=== PATIENT | female | born 1995 | race Caucasian/White ===

== ENCOUNTER 2018-08-20 22:35 | Emergency (ER) | payer SELFPAY ==
[2018-08-20 22:39] VITALS: BP 108/80
--- NOTE | 2018-08-20 22:39 | ER Report ---
History and Physical Time Seen By MD: 22:38 HPI/ROS CHIEF COMPLAINT: Painful lump behind left ear HISTORY OF PRESENT ILLNESS: 23-year-old female presents ambulatory to the ER complaining of painful lump behind her left ear for 1 week. His started draining purulent fluid over the last 24 hours. She states the pain is spread a nterior to her ear. And down into her neck. Patient states that she was killing spiders one week ago and thinks she may been bitten by a spider. Patient notes no fever or chills. She denies headache or photophobia. REVIEW OF SYSTEMS: Respiratory: No cough, no dyspnea. Cardiovascular: No chest pain, no palpitations. Gastrointestinal: No vomiting, no abdominal pain. Musculoskeletal: No back pain. Allergies: Coded Allergies: No Known Drug Allergies (Unverified , 08/20/18) Home Meds Active Scripts Cephalexin Monohydrate (CEPHALEXIN) 500 Mg Cap, 500 MG PO TID for infection, #20 CAP TAKE 1 CAPSULE BY MOUTH EVERY SIX HOURS Prov:ANDI BAEZ DO 08/20/18 Sulfamethoxazole/Trimet 800-160 Mg Tab (BACTRIM DS TABLET) 1 Each Tablet, 1 TAB PO Q12H for infection, #14 Prov:ANDI BAEZ DO 08/20/18 Reviewed Nurses Notes: Yes Old Medical Records Reviewed: Yes Constitutional Vital Sign - Last 24 Hours 08/20/18 22:39 Temp 98.0 Pulse 112 Resp 14 B/P (MAP) 108/80 Pulse Ox 92 O2 Delivery Room Air Physical Exam Vital signs stable, afebrile, pulse ox normal General Appearance: The patient is alert, has no immediate need for airway protection and no current signs of toxicity. Mild to moderate distress HEENT: Pupils equal and round no injection. TMs normal, posterior to the left ear over the mastoid area is a 2 cm x 3 cm erythematous area that is indurated but not fluctuant. There numerous open draining pustules Respiratory: Chest is non tender, lungs are clear to auscultation. Cardiac: regular rate and rhythm Gastrointestinal: Abdomen is soft and non tender, no masses, bowel sounds normal. Musculoskeletal: Neck: Neck is supple and non tender. There is swollen, tender lymphadenopathy in the left anterior cervical chain Extremities have full range of motion and are non tender. Skin: As above DIFFERENTIAL DIAGNOSIS: After history and physical exam differential diagnosis was considered for cellulitis, abscess, shingles, mastoiditis Medical Decision Making ED Course/Re-evaluation ED Course Patient was minute to an examination room. H&P was done. The differential diagnosis was considered. Patient with a area of cellulitis over the left mastoid area. It appears to have bacterial infection. There is purulent drainage coming out. There is no fluctuance to suggest at needed incision and drainage. Patient be treated with Keflex and Bactrim DS. Patient's advised ibuprofen 600 alternating with ibuprofen 650 mg for pain relief. She is advised to keep warm compresses over the affected area. Decision to Disposition Date: August 20, 2018 Decision to Disposition Time: 22:50 Depart Departure Latest Vital Signs Vital Signs Date Time Temp Pulse Resp B/P (MAP) Pulse Ox O2 Delivery O2 Flow Rate FiO2 08/20/18 22:39 98.0 112 14 108/80 92 Room Air Impression: Primary Impression: Cellulitis of scalp Condition: Improved Disposition: HOME OR SELF-CARE Referrals: CARLOS AUGUSTE MD, FARRUKH MD New Scripts Cephalexin Monohydrate (CEPHALEXIN) 500 Mg Cap 500 MG PO TID for infection, #20 CAP TAKE 1 CAPSULE BY MOUTH EVERY SIX HOURS Prov: ANDI BAEZ DO 08/20/18 Sulfamethoxazole/Trimet 800-160 Mg Tab (BACTRIM DS TABLET) 1 Each Tablet 1 TAB PO Q12H for infection, #14 Prov: ANDI BAEZ DO 08/20/18 Patient Instructions: Cellulitis (ED) Additional Instructions: Alternate ibuprofen 600 mg and Tylenol 650 mg Apply warm compresses or heating pad to the affected area as much as possible Follow-up with primary care or urgent care if unimproved in 3-5 days. ANDI BAEZ DO August 20, 2018 22:39
[2018-08-20] MEDS ORDERED: CEPHALEXIN MONO 500 MG CAP PO ONE (22:50)
[2018-08-20] MEDS ORDERED: TRIMETH/SULFA DS 160-800MG TAB PO ONE (22:50)
[2018-08-20] MEDS ORDERED: CEPH500C24 PO (22:52)
[2018-08-20] MEDS ORDERED: SULF-198 PO (22:52)
== END 2018-08-20 22:55 | disposition home or self-care (01) ==
LOC: ER 22:41
DX: L03.811 Cellulitis of head [any part, except face] (principal)
CPT/HCPCS: 99283

== ENCOUNTER 2018-11-09 14:35 | Emergency (ER) | payer SELFPAY ==
[~2018-11-09 14:35] MED LIST: CEPH500C24 PO; SULF-198 PO
--- NOTE | 2018-11-09 14:47 | ER Report ---
History and Physical Time Seen By MD: 14:43 HPI/ROS CHIEF COMPLAINT: Right gluteal abscess HISTORY OF PRESENT ILLNESS: Patient is a 32-year-old female here with complaints of several day history of a right gluteal abscess, redness, pain. Patient reportedly started taking Cipro which was left over at home without resolution. Reportedly, the size of the rash and swelling had halted but not improved since taking antimicrobial therapy. She did report having mild purulent green drainage from the site today. Patient is afebrile, hemodynamically stable. She does report chills without fever. REVIEW OF SYSTEMS: Constitutional: No fever, + chills. Musculoskeletal: Right gluteal tenderness on palpation Skin: Erythema, fluctuance of the right gluteal area consistent with abscess with a central scab Neurological: No focal neurological deficit Allergies: Coded Allergies: No Known Drug Allergies (Unverified , 11/09/18) Home Meds Active Scripts Tramadol Hcl (TRAMADOL HCL) 50 Mg Tablet, 50 MG PO Q6H PRN for PAIN, #12 TAB 0 Refills Prov:RAFFI MOSES DO 11/09/18 Clindamycin Hcl (CLINDAMYCIN HCL) 300 Mg Capsule, 300 MG PO TID for 7 Days, #21 CAPSULE Prov:RAFFI MOSES DO 11/09/18 Cephalexin Monohydrate (CEPHALEXIN) 500 Mg Cap, 500 MG PO TID for infection, #20 CAP TAKE 1 CAPSULE BY MOUTH EVERY SIX HOURS Prov:ANDI BAEZ DO 08/20/18 Sulfamethoxazole/Trimet 800-160 Mg Tab (BACTRIM DS TABLET) 1 Each Tablet, 1 TAB PO Q12H for infection, #14 Prov:ANDI BAEZ DO 08/20/18 Hx Substance Use Disorder: Yes (meth occationally) Hx Alcohol Use: Yes (occationally) Constitutional Vital Sign - Last 24 Hours 11/09/18 11/09/18 11/09/18 11/09/18 14:35 14:37 14:44 14:45 Temp 98.9 Pulse 111 112 Resp 14 B/P (MAP) 114/77 (89) 114/77 108/84 (92) Pulse Ox 95 O2 Delivery Room Air 11/09/18 11/09/18 15:00 15:05 Pulse 99 B/P (MAP) 107/76 (86) Pulse Ox 96 Physical Exam General Appearance: The patient is alert, has no immediate need for airway protection and no signs of toxicity. Uncomfortable appearing Neurological: No focal neurological deficits Skin: Erythema, fluctuance of the right gluteal area consistent with abscess with a central scab DIFFERENTIAL DIAGNOSIS: After history and physical exam differential diagnosis was considered for abscess, cellulitis, seroma Medical Decision Making ED Course/Re-evaluation ED Course Patient is a 32-year-old female here with complaints of a right gluteal abscess worsening over the past several days in spite of being on ciprofloxacin which the patient had at her house. Site was anesthetized using 5 mL of 2% lidocaine with epinephrine. The central scab was lanced using an 11 blade. Several cc of purulent material were drained from the site, a hemostat was used to open of loculation. The purulent material was collected for Gram stain and culture. The abscess was packed using iodoform gauze. A sterile dressing was placed over the wound. Hemostasis was achieved. Patient tolerated procedure well. Patient was given her 1st dose of clindamycin, Percocet for analgesia. Scripts provided for clindamycin, tramadol. PCP follow-up recommended. Return precautions provided Procedure I & D Abscess: Gluteal abscess was identified Site was anesthetized using 5 mL of 2% lidocaine with epinephrine. The central scab was lanced using an 11 blade. Several cc of purulent material were drained from the site, a hemostat was used to open of loculation. The purulent material was collected for Gram stain and culture. The abscess was packed using iodoform gauze. A sterile dressing was placed over the wound. Hemostasis was achieved. Patient tolerated procedure well. Decision to Disposition Date: Nov 09, 2018 Decision to Disposition Time: 15:33 Depart Departure Latest Vital Signs Vital Signs Date Time Temp Pulse Resp B/P (MAP) Pulse Ox O2 Delivery O2 Flow Rate FiO2 11/09/18 15:05 99 96 11/09/18 15:00 107/76 (86) 11/09/18 14:44 98.9 14 Room Air Impression: Primary Impression: Abscess, gluteal, right Condition: Improved Disposition: HOME OR SELF-CARE New Scripts Tramadol Hcl (TRAMADOL HCL) 50 Mg Tablet 50 MG PO Q6H PRN for PAIN, #12 TAB 0 Refills Prov: RAFFI MOSES DO 8/6/19 Clindamycin Hcl (CLINDAMYCIN HCL) 300 Mg Capsule 300 MG PO TID for 7 Days, #21 CAPSULE Prov: RAFFI MOSES DO 11/09/18 Patient Instructions: Abscess Incision and Drainage (DC) Additional Instructions: Please take clindamycin 1 tablet 3 times daily for 7 days for treatment of ear infection. You may take 1 tramadol every 6-8 hours as needed for breakthrough pain control. Please return promptly if you develop fevers, increasing size of the rash, worsening pain, nausea, vomiting. Please follow-up in one week with her primary care provider for repeat evaluation and care. RAFFI MOSES DO Nov 09, 2018 14:47
[2018-11-09] MEDS ORDERED: CLIN300C99 PO (15:02)
[2018-11-09] MEDS ORDERED: TRAM-420 PO (15:03)
[2018-11-09] MEDS ORDERED: oxyCODON/ACET (*)5/325MG (CII) 1 TAB TAB PO ONE (15:25)
[2018-11-09] MEDS ORDERED: CLINDAMYCIN 150 MG CAP PO ONE (15:25)
[2018-11-09 15:30] VITALS: BP 103/68
== END 2018-11-09 16:02 | disposition home or self-care (01) ==
LOC: ER 14:47
DX: L02.31 Cutaneous abscess of buttock (principal)
CPT/HCPCS: 87070; 87073; 87077; 87186; 87205; 99283